=== PATIENT | female | born 2000 | race Hispanic/Latino ===

== ENCOUNTER 2022-04-22 03:55 | Emergency (ER) | payer OTHER ==
[2022-04-22] MEDS ORDERED: Ibuprofen 800 MG TAB ONE (04:29)
== END 2022-04-22 05:04 | disposition home or self-care (01) ==
LOC: ERS 03:55
DX: S63.501A Unspecified sprain of right wrist, initial encounter (principal); X50.1XXA Overexertion from prolonged static or awkward postures, initial encounter